=== PATIENT | female | born 1970 | race Caucasian/White ===

== ENCOUNTER 2023-02-25 21:35 | Observation (INO) | payer MEDICARE ==
[2023-02-25] MEDS ORDERED: solu-MEDROL 125 MG, Sterile H2O 10 ml 2 ML IV ONE ×2 (22:19)
[2023-02-25] MEDS ORDERED: DUONEB 0.5-3 MG/3 ml Neb IH ONE ×2 (22:19→22:29)
[2023-02-25] MEDS ORDERED: HYDROCODONE-ACETAMIN 2.5-108/5 ML SOLUTION PO STA (22:20)
[2023-02-25] MEDS ORDERED: HYDROCODONE-ACETAMIN 2.5-108/5 ML SOLUTION ONE (22:27)
[2023-02-25] MEDS ORDERED: Sterile H2O 10 ml IJ ONE (22:27)
--- NOTE | 2023-02-25 22:27 | ERPHSYRPT ---
- History of Present Illness Time Seen by Provider: 02/25/23 21:51 Source: patient Exam Limitations: no limitations Patient Subjective Stated Complaint: pt states "I had an asthma attack around 1745 today. I lost my inhaler." Triage Nursing Assessment: pt ambulatory to bed by self, pt alert and oriented x3, pt c/o increased sob today after an asthma attack, pt has hx of asthma and multiple cases of PNA, pt talking in complete sentences, no apparent respiratory distress, pt has nonproductive cough, pt lost her inhaler so has not be able to use it. Physician History: 52 years old morbidly obese female with history of asthma presented in the ER with worsening of shortness of breath since she lost her inhaler few days ago and having frequent asthma attacks where she is wheezing, chest tightness and pressure all across. Patient is also having initially dry cough and now productive of yellow-green sputum moderate in amount and because of repeated coughing having bilateral lower chest wall pains. Timing/Duration: week(s) (1), gradual onset, worse Severity of Dyspnea-Max: moderate Severity of Dyspnea-Current: mild Possible Cause: frequent episodes Modifying Factors: Improves With: albuterol inhaler. Worsens With: coughing Associated Symptoms: intermittent, cough, wheezing, heaviness, productive cough, tightness, No painful breathing Allergies/Adverse Reactions: No Known Drug Allergies Allergy (Verified 02/25/23 21:38) Home Medications: Etodolac 300 mg PO BID 02/25/23 [History] Furosemide [Lasix] 20 mg PO DAILY 02/25/23 [History] Levothyroxine Sodium 75 Mcg [Synthroid 75 Mcg] 75 mcg PO DAILY 02/25/23 [History] Loratadine [Allergy Relief] 10 mg PO DAILY 02/25/23 [History] Hx Tetanus, Diphtheria Vaccination/Date Given: Yes Hx Influenza Vaccination/Date Given: Yes Hx Pneumococcal Vaccination/Date Given: No Immunizations Up to Date: Yes Travel Risk - International Travel Have you traveled outside of the country in past 3 weeks: No - Coronavirus Screening Are you exhibiting any of the following symptoms?: No Close contact with a COVID-19 positive Pt in past 14-21 Days: No - Vaccine Status Have you recieved a Covid-19 vaccination: Yes Nurse Practical: Moderna - Vaccination Dates Date of 2cond Vaccination (if applicable): unk - Review of Systems Constitutional: No Symptoms Eyes: No Symptoms Ears, Nose, & Throat: No Symptoms Respiratory: Cough, Dyspnea, Dyspnea on Exertion (LEON), Wheezing Cardiac: No Symptoms Abdominal/Gastrointestinal: No Symptoms Genitourinary Symptoms: No Symptoms Musculoskeletal: No Symptoms Skin: No Symptoms Neurological: No Symptoms Endocrine: No Symptoms Hematologic/Lymphatic: No Symptoms Immunological/Allergic: No Symptoms - Past Medical History Pertinent Past Medical History: Yes Neurological History: Migraines Cardiac History: Congestive Heart Failure Respiratory History: Asthma, Pneumonia Endocrine Medical History: Hypothyroidism Musculoskeletal History: Osteoarthritis Other Medical History: 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 This causes her to have pneumonia frequently. OA of knees. - Past Surgical History Past Surgical History: Yes Neuro Surgical History: No Pertinent History Cardiac: No Pertinent History Respiratory: No Pertinent History Gastrointestinal: Cholecystectomy Genitourinary: No Pertinent History Musculoskeletal: No Pertinent History Female Surgical History: Tubal Ligation Other Surgical History: uterine ablasion - Social History Smoking Status: Never smoker Exposure to second hand smoke: No Drug Use: none Patient Lives Alone: Yes - Nursing Vital Signs Nursing Vital Signs: Initial Vital Signs Pulse Rate 93 H 02/25/23 21:37 Respiratory Rate 29 H 02/25/23 21:37 Blood Pressure 134/79 02/25/23 21:37 O2 Sat by Pulse Oximetry 91 L 02/25/23 21:37 Pain Scale Pain Intensity 8 - Physical Exam General Appearance: no apparent distress, alert Eye Exam: PERRL/EOMI, eyes nml inspection Ears, Nose, Throat Exam: hearing grossly normal, normal ENT inspection, normal pharynx Neck Exam: normal inspection, supple, full range of motion Respiratory Exam: diminished breath sounds, rhonchi, wheezing Cardiovascular/Chest Exam: normal heart sounds, regular rate/rhythm Abdominal/Gastrointestinal Exam: soft, normal bowel sounds, No tenderness Extremity Exam: non-tender, normal range of motion Neurologic Exam: alert, oriented x 3, cooperative Skin Exam: normal color SpO2 Interpretation: normal SpO2: 93 O2 Delivery: Room Air - Course EKG Interpreted by Me: RATE (94), Sinus Rhythm, NORMAL AXIS, NORMAL INTERVALS, NORMAL QRS Ordered Tests: Active Orders 24 hr Category Date Time Status Lead Miner Blasting STAT Care 02/25/23 22:20 Active EKG-ER Only STAT Care 02/25/23 22:19 Active IV Insertion STAT Care 02/25/23 22:19 Active CHEST 1 VIEW (PORTABLE) Stat Exams 02/25/23 22:20 Taken BLOOD CULTURE Stat Lab 02/25/23 22:43 Ordered CBC W DIFF Stat Lab 02/25/23 22:28 Completed CMP Stat Lab 02/25/23 22:28 Completed Lactic Acid Stat Lab 02/25/23 22:38 Completed MAGNESIUM Stat Lab 02/25/23 22:28 Completed NT PRO BNPII Stat Lab 02/25/23 22:28 Completed TROPONIN Q4H Lab 02/25/23 22:28 Completed TROPONIN Q4H Lab 02/26/23 02:30 Ordered TROPONIN Q4H Lab 02/26/23 06:30 Ordered Respiratory Therapy Assessment DAILY RT 02/25/23 23:00 Completed Medication Summary Generic Name Dose Route Start Last Admin Trade Name Freq PRN Reason Stop Dose Admin Ceftriaxone Sodium/Dextrose 2 g in 50 mls @ 100 mls/hr 02/25/23 23:28 02/25/23 23:41 Rocephin 2 Gm-D5w 50ml Bag IV 02/25/23 23:57 100 mls/hr STAT STA 100 mls/hr Administration Azithromycin 500 mg in 250 mls @ 250 mls/hr 02/25/23 23:28 Zithromax 500 Mg/ 250 Ml Nacl Premix IV 02/26/23 00:27 STAT STA Discontinued Medications Generic Name Dose Route Start Last Admin Trade Name Freq PRN Reason Stop Dose Admin Hydrocodone Bitart/Acetaminophen 10 ml 02/25/23 22:20 02/25/23 22:31 Hydrocodone/Acetaminophen 5 Ml Udcup PO 02/25/23 22:21 10 ml STAT STA Administration Hydrocodone Bitart/Acetaminophen Confirm 02/25/23 22:27 Hydrocodone/Acetaminophen 5 Ml Udcup Administered 02/25/23 22:28 Dose 10 ml .ROUTE .STK-MED ONE Albuterol/Ipratropium 3 ml 02/25/23 22:19 02/25/23 22:30 Ipratropium/Albuterol Sulfate 3 Ml Ampul.Neb IH 02/25/23 22:20 3 ml STAT ONE Administration Albuterol/Ipratropium Confirm 02/25/23 22:29 Ipratropium/Albuterol Sulfate 3 Ml Ampul.Neb Administered 02/25/23 22:30 Dose 3 ml IH .STK-MED ONE Methylprednisolone Sodium 0 mg 02/25/23 22:19 02/25/23 22:33 Succinate 125 mg/ Sterile IV 02/25/23 22:20 125 mg Water 2 ml STAT ONE Administration Azithromycin Confirm 02/25/23 23:37 Zithromax 500 Mg/ 250 Ml Nacl Premix Administered 02/25/23 23:38 Dose 500 mg in 250 mls @ ud IV .STK-MED ONE Ceftriaxone Sodium/Dextrose Confirm 02/25/23 23:38 Rocephin 2 Gm-D5w 50ml Bag Administered 02/25/23 23:39 Dose 2 g in 50 mls @ ud IV .STK-MED ONE Methylprednisolone Sodium Succinate Confirm 02/25/23 22:28 Methylprednis Sod Succ 125 Mg/2 Ml Vial Administered 02/25/23 22:29 Dose 125 mg .ROUTE .STK-MED ONE Sterile Water Confirm 02/25/23 22:27 Water For Injection,Sterile 10 Ml Vial Administered 02/25/23 22:28 Dose 10 ml IJ .STK-MED ONE Lab/Rad Data: Laboratory Result Diagrams 02/25/23 22:28 02/25/23 22:28 Laboratory Results 02/25/23 02/25/23 02/25/23 Range/Units 22:38 22:28 22:28 WBC (4.0-10.5) x10^3/uL RBC (4.1-5.4) x10^6/uL Hgb (12.0-16.0) g/dL Hct (35-47) % MCV (78-100) fL MCH (26-32) pg MCHC (32-36) g/dL RDW (11.5-14.0) % Plt Count (150-450) x10^3/uL MPV (7.5-11.0) fL Gran % (36.0-66.0) % Immature Gran % (Auto) (0.00-0.4) % Nucleat RBC Rel Count (0.00-0.1) % Eos # (Auto) (0-0.5) x10^3/uL Immature Gran # (Auto) (0.00-0.03) x10^3u/L Absolute Lymphs (auto) (1.0-4.6) x10^3/uL Absolute Monos (auto) (0.0-1.3) x10^3/uL Absolute Nucleated RBC (0.00-0.01) x10^3u/L Lymphocytes % (24.0-44.0) % Monocytes % (0.0-12.0) % Eosinophils % (0.00-5.0) % Basophils % (0.0-0.4) % Absolute Granulocytes (1.4-6.9) x10^3/uL Basophils # (0-0.4) x10^3/uL Sodium 136 L (137-145) mmol/L Potassium 4.4 (3.5-5.1) mmol/L Chloride 98 (98-107) mmol/L Carbon Dioxide 30 (22-30) mmol/L Anion Gap 12.1 (5-15) MEQ/L BUN 16 (7-17) mg/dL Creatinine 0.44 L (0.52-1.04) mg/dL Estimated GFR > 60.0 ML/MIN Glucose 89 (74-106) mg/dL Lactic Acid 0.7 (0.4-2.0) Calcium 8.7 (8.4-10.2) mg/dL Magnesium 1.7 (1.6-2.3) mg/dL Total Bilirubin 0.40 (0.2-1.3) mg/dL AST 24 (14-36) U/L ALT 18 (0-35) U/L Alkaline Phosphatase 75 (38-126) U/L Troponin I < 0.012 (0.000-0.034) ng/mL NT-Pro-B Natriuret Pep 45.7 (<300) pg/mL Serum Total Protein 6.7 (6.3-8.2) g/dL Albumin 3.5 (3.5-5.0) g/dL 02/25/23 Range/Units 22:28 WBC 5.6 (4.0-10.5) x10^3/uL RBC 4.53 (4.1-5.4) x10^6/uL Hgb 12.7 (12.0-16.0) g/dL Hct 40.0 (35-47) % MCV 88.3 (78-100) fL MCH 28.0 (26-32) pg MCHC 31.8 L (32-36) g/dL RDW 15.4 H (11.5-14.0) % Plt Count 280 (150-450) x10^3/uL MPV 9.9 (7.5-11.0) fL Gran % 61.2 (36.0-66.0) % Immature Gran % (Auto) 0.4 (0.00-0.4) % Nucleat RBC Rel Count 0.0 (0.00-0.1) % Eos # (Auto) 0.17 (0-0.5) x10^3/uL Immature Gran # (Auto) 0.02 (0.00-0.03) x10^3u/L Absolute Lymphs (auto) 1.56 (1.0-4.6) x10^3/uL Absolute Monos (auto) 0.40 (0.0-1.3) x10^3/uL Absolute Nucleated RBC 0.00 (0.00-0.01) x10^3u/L Lymphocytes % 27.8 (24.0-44.0) % Monocytes % 7.1 (0.0-12.0) % Eosinophils % 3.0 (0.00-5.0) % Basophils % 0.5 (0.0-0.4) % Absolute Granulocytes 3.44 (1.4-6.9) x10^3/uL Basophils # 0.03 (0-0.4) x10^3/uL Sodium (137-145) mmol/L Potassium (3.5-5.1) mmol/L Chloride (98-107) mmol/L Carbon Dioxide (22-30) mmol/L Anion Gap (5-15) MEQ/L BUN (7-17) mg/dL Creatinine (0.52-1.04) mg/dL Estimated GFR ML/MIN Glucose (74-106) mg/dL Lactic Acid (0.4-2.0) Calcium (8.4-10.2) mg/dL Magnesium (1.6-2.3) mg/dL Total Bilirubin (0.2-1.3) mg/dL AST (14-36) U/L ALT (0-35) U/L Alkaline Phosphatase (38-126) U/L Troponin I (0.000-0.034) ng/mL NT-Pro-B Natriuret Pep (<300) pg/mL Serum Total Protein (6.3-8.2) g/dL Albumin (3.5-5.0) g/dL - Progress Progress: improved, re-examined Air Movement: fair Progress Note: 02/25/23 23:40 52 years old female with history of asthma is evaluated for worsening shortness of breath after she lost her inhaler. Patient is wheezing on presentation with borderline oxygen saturation, she is given DuoNeb and steroids, on reevaluation she is feeling better but her oxygen is dropping in mid 80s, placed on 2 L oxygen and is currently around 94%. Chest x-ray reviewed by me did not reveal any obvious infiltrative process. Has normal white count, fairly unremarkable c hemistries and negative troponins. Blood cultures are obtained. Patient is started on Rocephin and Zithromax. I believe patient would benefit with frequent nebs, steroids and oxygen. 02/25/23 23:[address] Justin, reviewed history, work-up and patient is excepted for admission. Blood Culture(s) Obtained: Yes Antibiotics given: Yes Discussed with Dr.: Other Will see patient in: hospital (observation) Counseled pt/family regarding: lab results, diagnosis, need for follow-up, rad results Medical Desision Making - Discussion of managment Care discussed with:: hospitalist (Dr. Justin at 2350) Reviewed:: Test results Agreed on:: Treatment plan, place in obs Will see patient: in hospital - Diagnostic Testing Diagnostic test were ordered, analyzed, and reviewed by me: Yes Radiological Interpretation: Interpreted by me, Reviewed by me - Risk of complications The pt has a high risk of morbidity or mortality based on: Decision regarding hospitilization or escalation of hosp level of care - Departure Departure Disposition: Observation Clinical Impression: Asthma exacerbation Respiratory failure Qualifiers: Chronicity: acute Respiratory failure complication: hypoxia Qualified Code(s): J96.01 - Acute respiratory failure with hypoxia Condition: Stable Critical Care Time: No Referrals: FILIPPO CERVANTES [Primary Care Provider] - Follow up/PCP as directed
[2023-02-25] MEDS ORDERED: solu-MEDROL ONE (22:28)
[2023-02-25 22:31] LABS: Absolute Neutrophil Ct (ANC) 3.44 x10^3/uL (1.4-6.9); BASOPHIL % 0.5 % (0.0-0.4); Basophil (Absolute #) 0.03 x10^3/uL (0-0.4); Eosinophil (Absolute #) 0.17 x10^3/uL (0-0.5); Hemoglobin 12.7 g/dL (12.0-16.0); IMMATURE GRAN # 0.02 x10^3u/L (0.00-0.03); IMMATURE GRAN % 0.4 % (0.00-0.4); Lymphocyte (Absolute #) 1.56 x10^3/uL (1.0-4.6); Lymphocytes % 27.8 % (24.0-44.0); Mean Cell Volume 88.3 fL (78-100); Mean Corpuscular Hgb Concent. 31.8 g/dL (32-36); Mean Platelet Volume 9.9 fL (7.5-11.0); Monocytes % 7.1 % (0.0-12.0); Neutrophil % 61.2 % (36.0-66.0); Platelet Count 280 x10^3/uL (150-450); Red Blood Count 4.53 x10^6/uL (4.1-5.4); Red Cell Distribution Width 15.4 % (11.5-14.0); White Blood Count 5.6 x10^3/uL (4.0-10.5)
[2023-02-25 22:36] LABS: ALBUMIN 3.5 g/dL (3.5-5.0); ALKALINE PHOSPHATASE 75 U/L (38-126); ANION GAP 12.1 MEQ/L (5-15); BLOOD UREA NITROGEN 16 mg/dL (7-17); CHLORIDE 98 mmol/L (98-107); Calcium 8.7 mg/dL (8.4-10.2); Carbon Dioxide 30 mmol/L (22-30); Creatinine 1 0.44 mg/dL (0.52-1.04); EST GLOMERULAR FILTRATION RATE > 60.0 ML/MIN; Glucose 89 mg/dL (74-106); MAGNESIUM 1.7 mg/dL (1.6-2.3); Potassium 4.4 mmol/L (3.5-5.1); SGOT/AST 24 U/L (14-36); SGPT/ALT 18 U/L (0-35); SODIUM 136 mmol/L (137-145); Total Protein 6.7 g/dL (6.3-8.2)
[2023-02-25 22:52] LABS: NT PRO BNPII 45.7 pg/mL (<300); TROPONIN < 0.012 ng/mL (0.000-0.034)
[2023-02-25] MEDS ORDERED: Zithromax 500 MG/ 250 ML NaCl Premix 500 MG/250 ML IVPB IV STA (23:28)
[2023-02-25] MEDS ORDERED: ROCEPHIN 2 Gm-D5w 50ML BAG** 2 G/50 ML IVPB IV STA (23:28)
[2023-02-25] MEDS ORDERED: Zithromax 500 MG/ 250 ML NaCl Premix 500 MG/250 ML IVPB IV ONE (23:37)
[2023-02-25] MEDS ORDERED: ROCEPHIN 2 Gm-D5w 50ML BAG** 2 G/50 ML IVPB IV ONE (23:38)
[2023-02-26] MEDS ORDERED: HUMALOG SQ PRN (01:16)
[2023-02-26] MEDS ORDERED: Zofran 4 MG/2 ML VIAL IV PRN (01:16)
[2023-02-26] MEDS ORDERED: solu-MEDROL 60 MG, Sterile H2O 10 ml 2 ML IV SCH ×2 (01:16)
[2023-02-26] MEDS ORDERED: TYLENOL 325 MG PO PRN (01:16)
[2023-02-26] MEDS ORDERED: MORPHINE SULFATE 2 MG INJ IV PRN (01:16)
[2023-02-26] MEDS ORDERED: DUONEB 0.5-3 MG/3 ml Neb IH SCH (01:16)
[2023-02-26] MEDS: DUONEB 0.5-3 MG/3 ml Neb IH SCH ×3 (02:35→11:03)
[2023-02-26] MEDS ORDERED: TORAdol 30 mg Injection IV PRN (04:24)
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
[2023-02-26] MEDS: Robitussin AC Syrup Unit Dose Cup PO PRN ×2 (04:56→10:14)
[2023-02-26 06:44] LABS: Absolute Neutrophil Ct (ANC) 4.82 x10^3/uL (1.4-6.9); BASOPHIL % 0.2 % (0.0-0.4); Basophil (Absolute #) 0.01 x10^3/uL (0-0.4); Eosinophil (Absolute #) 0 x10^3/uL (0-0.5); Hematocrit 41.6 % (35-47); Hemoglobin 13.2 g/dL (12.0-16.0); IMMATURE GRAN # 0.03 x10^3u/L (0.00-0.03); IMMATURE GRAN % 0.5 % (0.00-0.4); Lymphocyte (Absolute #) 0.84 x10^3/uL (1.0-4.6); Lymphocytes % 14.6 % (24.0-44.0); Mean Cell Volume 87.8 fL (78-100); Mean Corpuscular Hemoglobin 27.8 pg (26-32); Mean Corpuscular Hgb Concent. 31.7 g/dL (32-36); Mean Platelet Volume 9.7 fL (7.5-11.0); Monocyte (Absolute #) 0.07 x10^3/uL (0.0-1.3); Monocytes % 1.2 % (0.0-12.0); Neutrophil % 83.5 % (36.0-66.0); Platelet Count 286 x10^3/uL (150-450); Red Blood Count 4.74 x10^6/uL (4.1-5.4); Red Cell Distribution Width 15.4 % (11.5-14.0); White Blood Count 5.8 x10^3/uL (4.0-10.5)
[2023-02-26 07:03] VITALS: BP 128/75
--- NOTE | 2023-02-26 08:41 | XRAY ---
Indication: Short of breath. Comparison: August 20, 2019 Portable apical lordotic chest limited due to suboptimal technique and overlying external radiopacities. No focal infiltrate, consolidation, or large effusion. Heart not enlarged. Bony thorax intact.
[2023-02-26] MEDS ORDERED: PROTONIX 40 MG IV IV SCH (10:00)
[2023-02-26] MEDS ORDERED: Zithromax 500 MG/ 250 ML NaCl Premix 500 MG/250 ML IVPB IV SCH (10:00)
[2023-02-26] MEDS ORDERED: ENOXAPARIN SODIUM SQ SCH (10:00)
[2023-02-26] MEDS ORDERED: DELTASONE 20 MG PO SCH (10:00)
[2023-02-26 10:03] LABS: ALBUMIN 3.9 g/dL (3.5-5.0); ALKALINE PHOSPHATASE 74 U/L (38-126); ANION GAP 13.5 MEQ/L (5-15); BLOOD UREA NITROGEN 16 mg/dL (7-17); CHLORIDE 98 mmol/L (98-107); Calcium 8.9 mg/dL (8.4-10.2); Carbon Dioxide 27 mmol/L (22-30); EST GLOMERULAR FILTRATION RATE > 60.0 ML/MIN; Glucose 154 mg/dL (74-106); Potassium 4.6 mmol/L (3.5-5.1); SGOT/AST 25 U/L (14-36); SGPT/ALT 23 U/L (0-35); SODIUM 134 mmol/L (137-145); Total Protein 7.6 g/dL (6.3-8.2)
[2023-02-26 11:07] VITALS: PULSE 88
--- NOTE | 2023-02-26 11:13 | PCM.DS ---
Discharge Summary Date of Admission: 02/26/23 01:12 Admitting Physician: KRISTINE ROSE MD Primary Care Provider: FILIPPO CERVANTES Allergies Allergies No Known Drug Allergies Allergy (Verified 02/25/23 21:38) Hospital Summary - Hospital Course Hospital Course: Pt is a 52 yo female with past medical history of hypothyroid, asthma, and morbid obesity. She came to ER yesterday c/o asthma exacerbation x 2 days. She was given IV steroids and antibiotics and is feeling much better today. Has been off and on 2L NC (does have O2 at home but doesn't always wear it). Would very much like to go home today, and exam is benign (no wheezing), so will send her on antibiotics to finish 7d, presnisone, and inhaler (has lost her albuterol inhaler). She needs to f/u with PCP in 1 week. - Vitals & Intake/Output Vital Signs: Vital Signs Temperature 96.9 F 02/26/23 07:02 Pulse Rate 85 02/26/23 07:02 Respiratory Rate 18 02/26/23 07:02 Blood Pressure 128/75 02/26/23 07:02 O2 Sat by Pulse Oximetry 94 L 02/26/23 07:02 Intake & Output: Intake & Output 02/23/23 02/24/23 02/25/23 02/26/23 11:59 11:59 11:59 11:59 Intake Total 240 Balance 240 Weight 164.5 kg - Lab Result Diagrams: 02/26/23 06:32 02/26/23 06:32 Lab Results-Last 24 Hrs: Lab Results-Last 24 Hours 02/25/23 02/25/23 02/25/23 Range/Units 22:28 22:28 22:28 WBC 5.6 (4.0-10.5) x10^3/uL RBC 4.53 (4.1-5.4) x10^6/uL Hgb 12.7 (12.0-16.0) g/dL Hct 40.0 (35-47) % MCV 88.3 (78-100) fL MCH 28.0 (26-32) pg MCHC 31.8 L (32-36) g/dL RDW 15.4 H (11.5-14.0) % Plt Count 280 (150-450) x10^3/uL MPV 9.9 (7.5-11.0) fL Gran % 61.2 (36.0-66.0) % Immature Gran % (Auto) 0.4 (0.00-0.4) % Nucleat RBC Rel Count 0.0 (0.00-0.1) % Eos # (Auto) 0.17 (0-0.5) x10^3/uL Immature Gran # (Auto) 0.02 (0.00-0.03) x10^3u/L Absolute Lymphs (auto) 1.56 (1.0-4.6) x10^3/uL Absolute Monos (auto) 0.40 (0.0-1.3) x10^3/uL Absolute Nucleated RBC 0.00 (0.00-0.01) x10^3u/L Lymphocytes % 27.8 (24.0-44.0) % Monocytes % 7.1 (0.0-12.0) % Eosinophils % 3.0 (0.00-5.0) % Basophils % 0.5 (0.0-0.4) % Absolute Granulocytes 3.44 (1.4-6.9) x10^3/uL Basophils # 0.03 (0-0.4) x10^3/uL Sodium 136 L (137-145) mmol/L Potassium 4.4 (3.5-5.1) mmol/L Chloride 98 (98-107) mmol/L Carbon Dioxide 30 (22-30) mmol/L Anion Gap 12.1 (5-15) MEQ/L BUN 16 (7-17) mg/dL Creatinine 0.44 L (0.52-1.04) mg/dL Estimated GFR > 60.0 ML/MIN Glucose 89 (74-106) mg/dL Lactic Acid (0.4-2.0) Calcium 8.7 (8.4-10.2) mg/dL Magnesium 1.7 (1.6-2.3) mg/dL Total Bilirubin 0.40 (0.2-1.3) mg/dL AST 24 (14-36) U/L ALT 18 (0-35) U/L Alkaline Phosphatase 75 (38-126) U/L Troponin I < 0.012 (0.000-0.034) ng/mL NT-Pro-B Natriuret Pep 45.7 (<300) pg/mL Serum Total Protein 6.7 (6.3-8.2) g/dL Albumin 3.5 (3.5-5.0) g/dL 02/25/23 02/26/23 02/26/23 Range/Units 22:38 03:08 06:32 WBC (4.0-10.5) x10^3/uL RBC (4.1-5.4) x10^6/uL Hgb (12.0-16.0) g/dL Hct (35-47) % MCV (78-100) fL MCH (26-32) pg MCHC (32-36) g/dL RDW (11.5-14.0) % Plt Count (150-450) x10^3/uL MPV (7.5-11.0) fL Gran % (36.0-66.0) % Immature Gran % (Auto) (0.00-0.4) % Nucleat RBC Rel Count (0.00-0.1) % Eos # (Auto) (0-0.5) x10^3/uL Immature Gran # (Auto) (0.00-0.03) x10^3u/L Absolute Lymphs (auto) (1.0-4.6) x10^3/uL Absolute Monos (auto) (0.0-1.3) x10^3/uL Absolute Nucleated RBC (0.00-0.01) x10^3u/L Lymphocytes % (24.0-44.0) % Monocytes % (0.0-12.0) % Eosinophils % (0.00-5.0) % Basophils % (0.0-0.4) % Absolute Granulocytes (1.4-6.9) x10^3/uL Basophils # (0-0.4) x10^3/uL Sodium (137-145) mmol/L Potassium (3.5-5.1) mmol/L Chloride (98-107) mmol/L Carbon Dioxide (22-30) mmol/L Anion Gap (5-15) MEQ/L BUN (7-17) mg/dL Creatinine (0.52-1.04) mg/dL Estimated GFR ML/MIN Glucose (74-106) mg/dL Lactic Acid 0.7 (0.4-2.0) Calcium (8.4-10.2) mg/dL Magnesium (1.6-2.3) mg/dL Total Bilirubin (0.2-1.3) mg/dL AST (14-36) U/L ALT (0-35) U/L Alkaline Phosphatase (38-126) U/L Troponin I < 0.012 < 0.012 (0.000-0.034) ng/mL NT-Pro-B Natriuret Pep (<300) pg/mL Serum Total Protein (6.3-8.2) g/dL Albumin (3.5-5.0) g/dL 02/26/23 02/26/23 Range/Units 06:32 06:32 WBC 5.8 (4.0-10.5) x10^3/uL RBC 4.74 (4.1-5.4) x10^6/uL Hgb 13.2 (12.0-16.0) g/dL Hct 41.6 (35-47) % MCV 87.8 (78-100) fL MCH 27.8 (26-32) pg MCHC 31.7 L (32-36) g/dL RDW 15.4 H (11.5-14.0) % Plt Count 286 (150-450) x10^3/uL MPV 9.7 (7.5-11.0) fL Gran % 83.5 H (36.0-66.0) % Immature Gran % (Auto) 0.5 H (0.00-0.4) % Nucleat RBC Rel Count 0.0 (0.00-0.1) % Eos # (Auto) 0 (0-0.5) x10^3/uL Immature Gran # (Auto) 0.03 (0.00-0.03) x10^3u/L Absolute Lymphs (auto) 0.84 L (1.0-4.6) x10^3/uL Absolute Monos (auto) 0.07 (0.0-1.3) x10^3/uL Absolute Nucleated RBC 0.00 (0.00-0.01) x10^3u/L Lymphocytes % 14.6 L (24.0-44.0) % Monocytes % 1.2 (0.0-12.0) % Eosinophils % 0.0 (0.00-5.0) % Basophils % 0.2 (0.0-0.4) % Absolute Granulocytes 4.82 (1.4-6.9) x10^3/uL Basophils # 0.01 (0-0.4) x10^3/uL Sodium 134 L (137-145) mmol/L Potassium 4.6 (3.5-5.1) mmol/L Chloride 98 (98-107) mmol/L Carbon Dioxide 27 (22-30) mmol/L Anion Gap 13.5 (5-15) MEQ/L BUN 16 (7-17) mg/dL Creatinine 0.40 L (0.52-1.04) mg/dL Estimated GFR > 60.0 ML/MIN Glucose 154 H (74-106) mg/dL Lactic Acid (0.4-2.0) Calcium 8.9 (8.4-10.2) mg/dL Magnesium (1.6-2.3) mg/dL Total Bilirubin 0.30 (0.2-1.3) mg/dL AST 25 (14-36) U/L ALT 23 (0-35) U/L Alkaline Phosphatase 74 (38-126) U/L Troponin I (0.000-0.034) ng/mL NT-Pro-B Natriuret Pep (<300) pg/mL Serum Total Protein 7.6 (6.3-8.2) g/dL Albumin 3.9 (3.5-5.0) g/dL - Radiology Exams Ordered Rad Exams-Entire Visit: Radiology Procedures Category Date Time Status CHEST 1 VIEW (PORTABLE) Stat Exams 02/25/23 22:20 Completed - Procedures and Test Procedures and Tests throughout Hospitalization: Therapy Orders & Screens 02/25/23 23:00 Respiratory Therapy Assessment DAILY Comment: 02/26/23 01:16 Oxygen Nasal Cannula 2 lpm Comment: Discharge Exam General Appearance: no apparent distress, obese Neurologic Exam: alert, cooperative, normal mood/affect Eye Exam: eyes nml inspection Ears, Nose, Throat Exam: moist mucous membranes Neck Exam: normal inspection Respiratory Exam: diminished breath sounds (good air exchange), No crackles/rales, No rhonchi, No wheezing Cardiovascular Exam: regular rate/rhythm, normal heart sounds, No murmur Back Exam: normal inspection, No rash Extremity Exam: normal inspection Skin Exam: normal color, warm, dry, No rash Final Diagnosis/Problem List - Final Discharge Diagnosis/Problem (1) Asthma exacerbation Current Visit: Yes Status: Acute Assessment & Plan: Much improved. Will send home on antibiotics to treat for possibility of atypical pneumonia. Steroids. Albuterol inhaler. Code(s): J45.901 - UNSPECIFIED ASTHMA WITH (ACUTE) EXACERBATION (2) Chronic hypoxemic respiratory failure Current Visit: Yes Status: Chronic - Discharge Disposition: Home, Self-Care Condition: Good Prescriptions: New Lactobacillus Acidophilus [Acidophilus TABLET] 1 tab PO BID #14 tablet Cefdinir 300 mg PO BID #12 cap Prednisone 20 mg [Deltasone 20 mg] 60 mg PO DAILY tablet Azithromycin 250 mg [Zithromax 250 MG TABLET] 250 mg PO ZPACK 5 Days #6 tablet Continue Levothyroxine Sodium 75 Mcg [Synthroid 75 Mcg] 75 mcg PO DAILY Loratadine [Allergy Relief] 10 mg PO DAILY Furosemide [Lasix] 20 mg PO DAILY Etodolac 300 mg PO BID Semaglutide [Ozempic] 1 mg SQ WEEKLY Cyclobenzaprine HCl 10 mg [Cyclobenzaprine 10 MG] 5 mg PO BID Changed Albuterol 8 gm Mdi Hfa [Ventolin Hfa MDI] 2 puffs IH Q4H PRN PRN #1 unit PRN Reason: Shortness Of Breath Follow up with: FILIPPO CERVANTES [Primary Care Provider] -
[2023-02-26 12:11] VITALS: O2SAT 90
[2023-02-26] MEDS ORDERED: ROCEPHIN 2 Gm-D5w 50ML BAG** 2 G/50 ML IVPB IV SCH (22:00)
[2023-02-26] MEDS ORDERED: Zithromax 250 MG TABLET PO SCH (22:00)
== END 2023-02-26 13:36 | disposition home or self-care (01) ==
LOC: ED 21:35 → MED SURG 02-26 01:12
PROVIDERS: ADMIT Internal Medicine; ATTEND Family Medicine
DX: J45.901 Unspecified asthma with (acute) exacerbation (principal); J96.01 Acute respiratory failure with hypoxia; E03.9 Hypothyroidism, unspecified; E66.9 Obesity, unspecified; Z20.828 Contact with and (suspected) exposure to other viral communicable diseases; Z79.899 Other long term (current) drug therapy
CPT/HCPCS: 36000; 36415; 71045; 80053; 83605; 83735; 83880; 84484; 85025; 87040; 93005; 93041; 93268; 94640; 94760; 96365; 96367; 96374; 99285; G0378; J0456; J0696; J1650; J1885; J2930; A9270-GY